=== PATIENT | male | born 1975 | race Caucasian/White ===

== ENCOUNTER 2022-07-08 19:05 | Emergency (ER) | payer MEDICAID ==
[~2022-07-08] VITALS: Ht 167.6 cm; Wt 74.8 kg
[2022-07-08 19:07] VITALS: BP 131/86
--- NOTE | 2022-07-08 19:07 | NUR ---
BIBA TAKEN TO BED #8
--- NOTE | 2022-07-08 19:17 | NUR ---
DR PAGE AT BEDSIDE FOR EVAL
--- NOTE | 2022-07-08 19:17 | NUR ---
Patient being evaluated by physician at bedside.
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
--- NOTE | 2022-07-08 20:19 | NUR ---
PT TO CT
[2022-07-08] MEDS ORDERED: KETOROLAC 60 MG/2 ML VIAL IM ONE (20:35)
[2022-07-08] MEDS ORDERED: IBUP-2213 PO (21:09)
[2022-07-08 21:17] VITALS: BP 110/76
--- NOTE | 2022-07-08 21:17 | NUR ---
Patient discharged with v/s stable. Written and verbal after care instructions given and explained. Patient verbalized understanding. Ambulatory with steady gait. All questions addressed prior to discharge. Advised to follow up with PMD.
--- NOTE | 2022-07-08 21:24 | NUR ---
The patient's care was reviewed and supervised by Aissatou George RN.
== END 2022-07-08 21:17 | disposition home or self-care (01) ==
LOC: MED 19:05
DX: S09.90XA Unspecified injury of head, initial encounter (principal); M54.2 Cervicalgia; F17.200 Nicotine dependence, unspecified, uncomplicated; Y00.XXXA Assault by blunt object, initial encounter; Y93.89 Activity, other specified; Y92.89 Other specified places as the place of occurrence of the external cause; Y99.8 Other external cause status
CPT/HCPCS: 70450; 72125; 96372; 99284; J1885